=== PATIENT | female | born 1955 | race Caucasian/White ===

== ENCOUNTER 2021-02-11 19:00 | Observation (INO) ==
[2021-02-11] MEDS ORDERED: NS 0.9% 1000 ml BAG 1,000 ML IV ONE (19:20)
[2021-02-11] MEDS ORDERED: Iodixanol (CONTRAST) 320 MG/ML 100 ML SDV IV ONE (19:38)
[2021-02-11 19:39] LABS: ABS Eosinophils 0.1 10^3/ul (0-0.6); ABS Lymphocytes 1.4 10^3/ul (1.0-4.8); ABS Monocytes 0.5 10^3/ul (0-0.8); ABS Neutrophils 3.3 10^3/ul (1.5-7.7); Eosinophil % 1.4 %; Hematocrit 35 % (35-47); Hemoglobin 12.3 g/dL (12.0-16.0); Lymphocyte % 26.1 %; Mean Corpuscular HGB Conc 35 g/dL (31-36); Mean Corpuscular Hemoglobin 32 pg (27-31); Mean Corpuscular Volume 92 fL (80-97); Mean Platelet Volume 6.7 fL (7.4-10.4); Platelet Count 287 10^3/uL (150-450); Red Blood Count 3.81 10^6 /uL (3.70-4.87); Red Cell Distribution Width 13 % (10-15); White Blood Count 5.3 10^3/uL (3.5-10.8)
[2021-02-11 19:54] LABS: Troponin I 0.01 ng/mL (<0.03)
[2021-02-11 19:56] LABS: Albumin 4.7 g/dL (3.2-5.2); Albumin/Globulin Ratio 1.5 (1-3); Calcium 9.4 mg/dL (8.6-10.3); EGFR African American 87.4 (>60); EGFR Non-African American 72.2 (>60); Globulin 3.2 g/dL (2-4); HDL Cholesterol 83.3 mg/dL; Potassium 3.2 mmol/L (3.5-5.0); Total Bilirubin 0.5 mg/dL (0.2-1.0); Total Protein 7.9 g/dL (6.4-8.9)
[2021-02-11] MEDS ORDERED: niCARdipine 0.1MG/ML IVPREMIX 20 MG/200 ML BAG IV SCH (20:00)
[2021-02-11 20:02] LABS: Activated Partial Thrombo Time 29.3 seconds (26.0-38.0); INR 0.98 (0.86-1.15)
[2021-02-11] MEDS ORDERED: Ondansetron 4 mg VIAL 2 MG/ML 2 ml VIAL IV PRN (23:49)
[2021-02-12] MEDS ORDERED: Enoxaparin 40 MG/0.4 ML SYR SUBCUT SCH
[2021-02-12] MEDS ORDERED: Potassium Chloride LIQUID 20 MEQ/15 ML LIQUID PO ONE (00:02)
[2021-02-12 00:09] LABS: Magnesium 2.3 mg/dL (1.9-2.7)
[2021-02-12 01:10] LABS: TSH Ultra Thyroid Stim Horm 2.19 mcIU/mL (0.34-5.60)
[2021-02-12 07:58] LABS: ABS Eosinophils 0.1 10^3/ul (0-0.6); ABS Lymphocytes 1.2 10^3/ul (1.0-4.8); ABS Monocytes 0.4 10^3/ul (0-0.8); ABS Neutrophils 2.7 10^3/ul (1.5-7.7); Hematocrit 39 % (35-47); Hemoglobin 13.3 g/dL (12.0-16.0); Lymphocyte % 27.5 %; Mean Corpuscular HGB Conc 35 g/dL (31-36); Mean Corpuscular Hemoglobin 32 pg (27-31); Mean Corpuscular Volume 94 fL (80-97); Mean Platelet Volume 6.8 fL (7.4-10.4); Nucleated Red Blood Cells % 0.1; Platelet Count 274 10^3/uL (150-450); Red Blood Count 4.12 10^6 /uL (3.70-4.87); Red Cell Distribution Width 13 % (10-15); White Blood Count 4.5 10^3/uL (3.5-10.8)
[2021-02-12] MEDS ORDERED: Perflutren Lipid Microsphere 3 ML VIAL ONE (08:06)
[2021-02-12 08:18] LABS: Anion Gap 9 mmol/L (2-11); Blood Urea Nitrogen 10 mg/dL (6-24); CO2 Carbon Dioxide 25 mmol/L (22-32); Calcium 9.2 mg/dL (8.6-10.3); Chloride 100 mmol/L (101-111); Cholesterol 213 mg/dL; EGFR Non-African American 93.4 (>60); Glucose 90 mg/dL (70-100); HDL Cholesterol 73.9 mg/dL; LDL Cholesterol 113 mg/dL; Potassium 3.3 mmol/L (3.5-5.0); Sodium 134 mmol/L (135-145); Triglycerides 130 mg/dL
[2021-02-12 08:53] LABS: Folate > 20.00 ng/mL (5.90-24.80)
[2021-02-12 08:54] LABS: Vitamin B12 270 pg/mL (180-914)
[2021-02-12 15:34] VITALS: BP 150/86
[2021-02-15 17:52] LABS: Anaplasma phagocytophilum Negative (Negative); B. miyamotoi PCR, B Negative (Negative); Babesia divergens/MO-1 Negative (Negative); Babesia ducani Negative (Negative); Ehrlichia chaffeensis Negative (Negative); Ehrlichia ewingii/canis Negative (Negative); Ehrlichia muris eauclairensis Negative (Negative)
== END 2021-02-12 17:10 | disposition home or self-care (01) ==
LOC: MEDTELE 19:00 → ED 19:00 → SUATTDRO 23:09 → MEDTELE 02-12 01:17
PROVIDERS: ADMIT Hospitalist; ATTEND Internal Medicine